=== PATIENT | male | born 2000 | race Two or more races ===

== ENCOUNTER → 2024-05-08 | Outpatient (CLI) | payer BC, SELFPAY ==
[2024-05-08 07:56] LABS: Quantiferon-TB* See Sep Rpt
== END | disposition home or self-care (01) ==
LOC: COPL 07:38
PROVIDERS: PCP Family Medicine; Referring Provider Nurse Practitioner Family; Visit Provider Nurse Practitioner Family
DX: Z20.1 Contact with and (suspected) exposure to tuberculosis (principal)
CPT/HCPCS: 86480

== ENCOUNTER 2024-05-28 16:30 | Emergency (ER) | payer BC, SELFPAY ==
[2024-05-28 16:50] VITALS: BP 129/86; PULSE 88; RESP 18; TEMP 37.5; O2SAT 99; BMI 22.5
--- NOTE | 2024-05-28 16:51 | PD.EDRME ---
Rapid Medical Screening Exam RME Arrival date/time: 05/28/24 16:30 22-year-old male presents emergency department complaints of nausea vomiting and diarrhea Chief Complaint: Abdominal Pain Time Seen by Provider: 05/28/24 16:48
[2024-05-28 17:14] LABS: Basophils % (Auto) 0 % (0-2.5); Eosinophils # (Auto) 0.1 Thou/mm3 (0.0-0.5); Eosinophils % (Auto) 1 % (0-10); Hematocrit 42.4 % (41.0-53.0); Hemoglobin 14.9 g/dL (13.5-16.0); Immature Granulocytes % (Auto) 0 % (0-0); Immature Granulocytes Auto 0.03 Thou/mm3 (0.00-0.00); Lymphocytes # (Auto) 0.3 Thou/mm3 (1.0-4.8); Lymphocytes % (Auto) 3 % (10-50); Mean Corpuscular HGB Conc 35.1 g/dl (31.0-37.0); Mean Corpuscular Hemoglobin 29.6 pg (25.0-35.0); Mean Corpuscular Volume 84 fL (80-100); Monocytes # (Auto) 0.4 Thou/mm3 (0.0-0.8); Monocytes % (Auto) 4 % (0-12); Neutrophils # (Auto) 9.8 Thou/mm3 (1.8-7.7); Neutrophils % (Auto) 92 % (37-80); Nucleated Red Blood Cell % 0 /100 WBC (0); Platelet Count 148 Thou/mm3 (140-440); RDW Standard Deviation 39.7 fL (35.1-43.9); Red Blood Count 5.04 Miln/mm3 (4.50-5.90); White Blood Count 10.6 Thou/mm3 (3.8-10.6)
[2024-05-28] MEDS: ONDANSETRON ODT 4 MG TABRAP PO (17:19)
[2024-05-28 17:36] LABS: Alanine Aminotransferase 25 U/L (10-49); Albumin, Serum 4.9 gm/dL (3.5-5.0); Albumin/Globulin Ratio 1.5 (1.2-2.2); Alkaline Phosphatase 60 U/L (46-116); Anion Gap 8 (7-16); Aspartate Amino Transferase 32 U/L (0-34); BUN/Creatinine Ratio 10 Ratio (12-20); Bilirubin,Total 2.3 mg/dL (0.3-1.2); Blood Urea Nitrogen 10 mg/dL (9-23); Calcium 9.9 mg/dL (8.3-10.6); Calcium (Corrected) 9.9 mg/dL (8.5-10.1); Carbon Dioxide 27.9 mMol/L (20.0-31.0); Chloride 101 mMol/L (98-107); Estimated Creatinine Clearance 136.4 mL/min (>60); Globulin 3.2 gm/dL (2.3-3.5); Glucose 110 mg/dL (74-106); Lipase 31 U/L (12-53); Osmolality,Calculated 273 (275-295); Potassium 4.1 mMol/L (3.4-5.1); Sodium 137 mMol/L (136-145); Total Protein 8.1 gm/dL (5.7-8.2); eGFR > 60 See Note
[2024-05-28 18:05] LABS: Collection Type, Urine Clean Catch
[2024-05-28 18:17] LABS: Bacteria,Urine Rare; Bilirubin,Urine Negative (Negative); Blood,Urine Negative (Negative); Clarity,Urine Clear (Clear/Hazy); Color,Urine Yellow (Lt Yel-Yel); Culture Indicated,Urine Not Indicated; Glucose, Urine Negative (Negative); Ketones,Urine Trace (Negative); Leukocyte Esterase,Urine Negative (Negative); Nitrite,Urine Negative (Negative); PH,Urine 6.5 (5.0-7.0); Protein,Urine Trace (Neg - Trace); RBC,Urine 3 /hpf (0-3); Specific Gravity,Urine 1.024 (1.001-1.035); Squamous Epithelial Cell,Urine < 1 /hpf (0-5); Urobilinogen,Urine Negative mg/dL (0.0-1.0); WBC,Urine 1 /hpf (0-5)
--- NOTE | 2024-05-28 20:04 | PD.EDADULT ---
ED General RME/HPI General Chief complaint: Abdominal Pain Stated complaint: ABD PAIN, DARK GREEN STOOL/EMESIS X 0900 Time Seen by Provider: 05/28/24 16:48 Arrival date/time: 05/28/24 16:30 CC: Nausea vomiting diarrhea HPI onset this morning, mildly nauseated currently last episode of nausea and vomiting was approximately 2 hours ago. States he is feeling better after medicines given in the waiting room. Denies any other family members around or being ill with similar symptoms no prior history of similar events denies any fever chest pain shortness of breath or difficulty breathing. RME / HPI RME / HPI narrative: 05/28/24 16:30 22-year-old male presents emergency department complaints of nausea vomiting and diarrhea Related Data Previous Rx's ?Medication ?Instructions ?Recorded famotidine 20 mg tablet 20 mg PO QDAY #30 tabs 05/28/24 ondansetron 4 mg disintegrating 4 mg PO Q8H #14 tabs 05/28/24 tablet Allergies Allergy/AdvReac Type Severity Reaction Status Date / Time NKA* Allergy Uncoded 05/28/24 16:32 Review of Systems Review of Systems Narrative Review of Systems: GEN: No fever, no chills, no weight loss EYES: No discharge, no visual changes, no pain HEENT: No ear pain, no congestion, no sore throat PULM: No shortness of breath, no cough, no congestion CV: No chest pain, no dyspnea on exertion, no palpitations GI: + nausea, + vomiting, + diarrhea, no pain, no constipation : No frequency, no urgency, no dysuria MUSC/SKEL: No joint pain, no back pain SKIN: No rash PSYCH: No hallucinations, no depression HEME/LYMPH: No easy bleeding or bruising tendencies NEURO: No weakness, no headache ED Exam Narrative Physical exam: [General: Not in any acute distress Head normocephalic HEENT: Within acceptable limits Neck is supple nontender Chest equal chest rise nontender to palpation Respiratory: Clear to auscultation no wheezes crackles or rubs CV: Rate rhythm is regular no murmurs rubs or clicks Abdomen is soft mild epigastric right upper and left upper quadrant tenderness with palpation no reflexive guarding no rebound tenderness. Back: No CVA tenderness no spinous process tenderness from cervical spine thoracic and lumbar spine Skin: Intact no petechiae rash induration ulceration or crepitus Extremities: Moving all extremity against resistance cap refill less than 2 seconds neurosensory intact Neuro: Awake alert oriented x3 Glascow coma 15 no focal deficits] Course Quality Measures none Orders Category Date Time Status Bedside Influenza A&B Antigen Test NOW Care 05/28/24 16:50 Completed CBC Stat Lab 05/28/24 17:04 Completed Comprehensive Metabolic Panel Stat Lab 05/28/24 17:04 Completed Lipase Stat Lab 05/28/24 17:04 Completed UA, C/S IF [Urinalysis, C/S if Indicated] Stat Lab 05/28/24 17:45 Completed Ondansetron Odt [Zofran Odt] Med 05/28/24 16:50 Discontinued 4 mg PO X1 ONE Vital Signs Vital signs: Vital Signs Temperature 99.5 F 05/28/24 16:50 Pulse Rate 88 05/28/24 16:50 Respiratory Rate 18 05/28/24 16:50 Blood Pressure 129/86 H 05/28/24 16:50 Pulse Oximetry (%) 99 05/28/24 16:50 Oxygen Delivery Method Room Air 05/28/24 16:50 [facility] Patient data External records reviewed:: [facility] previous records Clinical information provided by:: patient Social determinants that could affect healthcare access:: none Patient has the following chronic illnesses:: None How is presenting disease/condition affected by chronic disease/condition?: uneffected by Evaluation data The following diagnostics were reviewed and interpreted by me:: lab results Lab and/or radiology exams considered but not ordered:: CBC shows no acute leukocytosis anemia thrombocytopenia CMP shows no acute electrolyte imbalances renal impairment transaminitis but there is an elevated T. bili of 2.3 Urine is negative Interpretation Summary: I suspect this is gastroenteritis, however with elevated T. bili advised the patient that he is to continue with a bland diet and medications prescribed and if there is worsening of symptoms return for reevaluation. Patient is in agreement with this plan. Medications Medications considered but not ordered:: None Medication administrations:: Medication Administration History Discontinued Medications Ondansetron HCl (Ondansetron Odt 4 Mg Tabrap) 4 mg PO X1 ONE; Protocol Stop: 05/28/24 16:51 Last Admin: 05/28/24 17:19 Dose: 4 mg Documented By: KF None Consultations Consultation(s) initiated? (list below): No Diagnosis Differential Diagnosis ED Complaint MDM: Gastroenteritis cholelithiasis cholecystitis Most likely diagnosis given after review of the tests above:: Gastritis Admission Indicated Admission indicated?: not indicated Explain why admission is indicated or not indicated:: Stable for outpatient follow-up Admission Request Was there a request for admission?: No Disposition Plan Disposition Plan: Discharge Discharge Attestation Discharge Attestation: The patient and all family members were given an opportunity to ask questions and understood the discharge instructions. Discharge instructions specifically effects, indications for sooner follow up or return to the emergency department, and the expected course of current diagnosis. Patient condition: Stable Medical Decision Making Differential Diagnosis Differential Diagnosis: Gastroenteritis cholelithiasis cholecystitis Lab Data 05/28/24 17:04 05/28/24 17:04 Labs: Lab Results 05/28/24 05/28/24 Range/Units 17:04 17:45 WBC 10.6 (3.8-10.6) Thou/mm3 RBC 5.04 (4.50-5.90) Miln/mm3 Hgb 14.9 (13.5-16.0) g/dL Hct 42.4 (41.0-53.0) % MCV 84 (80-100) fL MCH 29.6 (25.0-35.0) pg MCHC 35.1 (31.0-37.0) g/dl RDW Std Deviation 39.7 (35.1-43.9) fL Plt Count 148 (140-440) Thou/mm3 Neut % (Auto) 92 H (37-80) % Lymph % (Auto) 3 L (10-50) % [place] % (Auto) 4 (0-12) % Eos % (Auto) 1 (0-10) % Baso % (Auto) 0 (0-2.5) % Neut # (Auto) 9.8 H (1.8-7.7) Thou/mm3 Lymph # (Auto) 0.3 L (1.0-4.8) Thou/mm3 [place] # (Auto) 0.4 (0.0-0.8) Thou/mm3 Eos # (Auto) 0.1 (0.0-0.5) Thou/mm3 Baso # (Auto) 0.0 (0.0-0.2) Thou/mm3 Immature Gran # (Auto) 0.03 H (0.00-0.00) Thou/mm3 Absolute Nucleated RBC 0.00 (0.00-0.00) Thou/mm3 Immature Gran % 0 (0-0) % Nucleated RBC % 0 (0) /100 WBC Sodium 137 (136-145) mMol/L Potassium 4.1 (3.4-5.1) mMol/L Chloride 101 (98-107) mMol/L Carbon Dioxide 27.9 (20.0-31.0) mMol/L Anion Gap 8 (7-16) BUN 10 (9-23) mg/dL Creatinine 1.0 (0.6-1.3) mg/dL Estim Creat Clear Calc 136.4 (>60) mL/min eGFR > 60 (60 - ) See Note BUN/Creatinine Ratio 10 L (12-20) Ratio Glucose 110 H (74-106) mg/dL Calculated Osmolality 273 L (275-295) Calcium 9.9 (8.3-10.6) mg/dL Corrected Calcium 9.9 (8.5-10.1) mg/dL Total Bilirubin 2.3 H (0.3-1.2) mg/dL AST 32 (0-34) U/L ALT 25 (10-49) U/L Alkaline Phosphatase 60 (46-116) U/L Total Protein 8.1 (5.7-8.2) gm/dL Albumin 4.9 (3.5-5.0) gm/dL Globulin 3.2 (2.3-3.5) gm/dL Albumin/Globulin Ratio 1.5 (1.2-2.2) Lipase 31 (12-53) U/L Ur Collection Type Clean Catch Urine Color Yellow (Lt Yel-Yel) Urine Clarity Clear (Clear/Hazy) Urine pH 6.5 (5.0-7.0) Ur Specific [place] 1.024 (1.001-1.035) Urine Protein Trace (Neg - Trace) Urine Glucose (UA) Negative (Negative) Urine Ketones Trace (Negative) Urine Blood Negative (Negative) Urine Nitrite Negative (Negative) Urine Bilirubin Negative (Negative) Urine Urobilinogen (Auto) Negative (0.0-1.0) mg/dL Ur Leukocyte Esterase Negative (Negative) Urine RBC 3 (0-3) /hpf Urine WBC 1 (0-5) /hpf Ur Squamous Epith Cells < 1 (0-5) /hpf Urine Bacteria Rare (None) Ur Culture Indicated? Not Indicated Discharge Plan Plan Patient Disposition: HOME (Self Care) Patient condition on transfer: Stable Prescriptions/Referrals Prescriptions/Med Rec: New ondansetron 4 mg tablet,disintegrating 4 mg PO Q8H Qty: 14 0RF famotidine 20 mg tablet 20 mg PO QDAY Qty: 30 0RF Referrals: Yadiel Aguilar MD [Primary Care Provider] - In 1 week Problem List Clinical Impression: Nausea & vomiting, Epigastric pain Patient/Caregiver Discharge Instructions Education Materials: ED Epigastric Pain (Uncertain Cause), ED Diet, [place] (Adult) Additional Instructions: Take the medications as prescribed avoid greasy spicy and fatty foods stick to a bland diet for the next 7 to 10 days if there is worsening of symptoms in spite of the medications return the emergency room immediately for further evaluation. Print Language: Hebrew Stand Alone Forms: Yandy Award Info., Patient Portal Info Letter, Work/School Release YANNA/TRUPTI Supervising Physician YANNA/TRUPTI Supervising Physician: Danie Cardona ENP
== END 2024-05-28 20:15 | disposition home or self-care (01) ==
PROVIDERS: Nurse Practitioner Primary Care; Emergency Provider Emergency Medicine; PCP Family Medicine
DX: R11.2 Nausea with vomiting, unspecified (principal); R10.13 Epigastric pain
CPT/HCPCS: 36415; 80053; 81001; 83690; 85025; 87400; 99283; Q0162

== ENCOUNTER → 2024-06-03 | Outpatient (CLI) | payer BC, SELFPAY ==
[2024-06-03 15:49] LABS: Sed Rate (ESR) 1 mm/hr (0-15)
[2024-06-03 15:59] LABS: Bilirubin,Direct 0.3 mg/dL (0.0-0.3); Bilirubin,Total 0.9 mg/dL (0.3-1.2); LDH (Lactate Dehydrogenase) 169 U/L (120-246)
[2024-06-10 06:52] LABS: Gamma Glutamyl Transpeptidase* 12 U/L (3-70); hs-CRP* 0.4 mg/L
== END | disposition home or self-care (01) ==
LOC: COPL 14:39
PROVIDERS: PCP Nurse Practitioner Family; Referring Provider Nurse Practitioner Family; Visit Provider Nurse Practitioner Family
DX: R79.9 Abnormal finding of blood chemistry, unspecified (principal); R10.11 Right upper quadrant pain; E80.7 Disorder of bilirubin metabolism, unspecified
CPT/HCPCS: 36415; 82247; 82248; 82977; 83615; 85652; 86141

== ENCOUNTER 2024-11-28 23:18 | Emergency (ER) | payer BC, SELFPAY ==
[2024-11-28 23:19] VITALS: BMI 21.9
[2024-11-28 23:24] VITALS: BP 132/73; PULSE 44; RESP 18; TEMP 36.6; O2SAT 98
--- NOTE | 2024-11-28 23:35 | EKG_ITS ---
[facility] Test Date: 2024-11-28 Pat Name: SACHI VIRGEN Department: Room: - Gender: Male Manager Of Distribution: : 2000 Requested By: Amor Aranda Order Number: [id number] Reading MD: Amor Aranda Measurements Intervals [place] Rate: 47 P: 23 OR: 138 QRS: 82 QRSD: 118 T: 49 QT: 423 QTc: 374 Interpretive Statements SINUS BRADYCARDIA MODERATE INTRAVENTRICULAR CONDUCTION DELAY [110+ ms QRS DURATION] Compared to ECG 02/17/2024 03:18:12 Intraventricular conduction delay now present Sinus rhythm no longer present Sinus arrhythmia no longer present Incomplete right bundle-branch block no longer present /store/S0/[id number].pdf
--- NOTE | 2024-11-29 00:05 | XR_ITS ---
Examination: Ribs, left, with PA chest, 5 views Technique: Chest PA, RIBS AP, RPO, LPO, AP coned lower ribs 5 views Exam date and time: November 29, 2024 at 0036 hours INDICATIONS: Basketball injury to the left chest 4 days ago, rib pain Findings: Normal heart size. No pneumothorax No acute rib fracture is depicted. IMPRESSION: No pneumothorax No acute rib fractures
[2024-11-29 00:23] LABS: Basophils % (Auto) 1 % (0-2.5); Eosinophils # (Auto) 0.3 Thou/mm3 (0.0-0.5); Eosinophils % (Auto) 5 % (0-10); Hematocrit 37.8 % (41.0-53.0); Hemoglobin 13.7 g/dL (13.5-16.0); Immature Granulocytes % (Auto) 0 % (0-0); Immature Granulocytes Auto 0.01 Thou/mm3 (0.00-0.00); Lymphocytes # (Auto) 2.3 Thou/mm3 (1.0-4.8); Lymphocytes % (Auto) 38 % (10-50); Mean Corpuscular HGB Conc 36.2 g/dl (31.0-37.0); Mean Corpuscular Hemoglobin 30.1 pg (25.0-35.0); Mean Corpuscular Volume 83 fL (80-100); Monocytes # (Auto) 0.5 Thou/mm3 (0.0-0.8); Monocytes % (Auto) 9 % (0-12); Neutrophils # (Auto) 2.9 Thou/mm3 (1.8-7.7); Neutrophils % (Auto) 48 % (37-80); Nucleated Red Blood Cell % 0 /100 WBC (0); Platelet Count 151 Thou/mm3 (140-440); RDW Standard Deviation 39.8 fL (35.1-43.9); Red Blood Count 4.55 Miln/mm3 (4.50-5.90)
--- NOTE | 2024-11-29 00:30 | PD.EDCHEST ---
ED Chest Pain RME/HPI General Chief Complaint: Chest Pain Stated Complaint: LEFT SIDED RIB PAIN AFTER PLAYING BASKETBALL Time Seen by Provider: 11/29/24 00:05 Arrival date/time: 11/28/24 23:18 24M with no significant PMH presents to ED with L rib pain for 4 days after playing basketball. Patient does not recall an obvious injury, but another player may have elbowed him there. There is also some SOB. Patient denies URI symptoms. Limitations: no limitations Related Data Previous Rx's ?Medication ?Instructions ?Recorded famotidine 20 mg tablet 20 mg PO QDAY #30 tabs 05/28/24 ondansetron 4 mg disintegrating 4 mg PO Q8H #14 tabs 05/28/24 tablet Allergies Allergy/AdvReac Type Severity Reaction Status Date / Time NKA* Allergy Uncoded 11/28/24 23:21 Review of Systems Review of Systems Systems Reviewed: All systems reviewed, normal except as documented Constitutional Constitutional: Reports system reviewed and no additional complaints, except as documented, Denies fever(s) and Denies headache(s) ENT Ears, Nose, Mouth, and Throat: Denies disequilibrium and Denies headache(s) Cardiovascular Cardiovascular: Reports system reviewed and no additional complaints, except as documented, Reports as per HPI, Reports chest pain and Reports dyspnea Respiratory Respiratory: Reports system reviewed and no additional complaints, except as documented, Denies cough and Reports dyspnea Gastrointestinal Gastrointestinal: Reports system reviewed and no additional complaints, except as documented, Denies abdominal pain, Denies nausea and Denies vomiting Neurologic Neurologic: Reports system reviewed and no additional complaints, except as documented, Denies confusion, Denies disequilibrium and Denies headache(s) Psychiatric Psychiatric: Denies confusion Past Medical History Social History SMOKING STATUS: Never smoker ED Exam General Limitations: Present no limitations General appearance: Present alert and in no apparent distress Head Head exam: Present atraumatic Eye Eye exam: Present normal appearance, PERRL and EOMI ENT ENT exam: Present normal exam, normal oropharynx and mucous membranes moist Neck Neck exam: Present normal inspection, full ROM and trachea midline Chest Chest inspection: Present symmetric chest wall rise and tenderness (L rib) Respiratory Respiratory exam: Present normal lung sounds bilaterally Cardiovascular Cardiovascular exam: Present regular rate, normal rhythm and normal heart sounds Abdominal Exam Abdominal exam: Present soft and normal bowel sounds Extremities Exam Extremities exam: Present normal inspection and full ROM Back Exam Back exam: Present normal inspection and full ROM Neurological Exam Neurological exam: Present alert, oriented X3 and CN II-XII intact Psychiatric Psychiatric exam: Present normal affect and normal mood Skin Skin exam: Present warm, dry, intact and normal color Course Quality Measures none Orders Category Date Time Status EKG (ED ONLY) *Do not use* NOW Care 11/28/24 23:35 Completed EKG (ED Only) Stat Exams 11/28/24 23:35 Draft XR ribs LT min 3V w CXR1V Stat Exams 11/29/24 00:05 Taken CBC Stat Lab 11/29/24 00:16 Completed CMP [Comprehensive Metabolic Panel] Stat Lab 11/29/24 00:16 Completed D-Dimer Stat Lab 11/29/24 00:16 Completed Troponin I Stat Lab 11/29/24 00:16 Completed Vital Signs Vital signs: Vital Signs Temperature 98 F 11/28/24 23:24 Pulse Rate 44 L 11/28/24 23:24 Respiratory Rate 18 11/28/24 23:24 Blood Pressure 132/73 H 11/28/24 23:24 Pulse Oximetry (%) 98 11/28/24 23:24 Oxygen Delivery Method Room Air 11/28/24 23:24 O2 at 98% on RA and WNLs Chest Pain MDM Narrative MDM Narrative:: 24M with no significant PMH presents to ED with L rib pain for 4 days after playing basketball. Patient does not recall an obvious injury, but another player may have elbowed him there. There is also some SOB. Patient denies URI symptoms. Physical exam reveals mild L rib tenderness. Pain is with ROM. Clear lungs. Patient is afebrile, calm, and alert. EKG is sinus mayela of 47. XR unremarkable. No leukocytosis. CMP unremarkable. Trop and D-dimer normal. Likely MSK-related sports injury. Counseled to see PCP to work-up bradycardia. Patient data External records reviewed:: [facility] previous records Clinical information provided by:: patient Social determinants that could affect healthcare access:: none Patient has the following chronic illnesses:: none How is presenting disease/condition affected by chronic disease/condition?: no chronic disease Evaluation data The following diagnostics were reviewed and interpreted by me:: lab results, radiology exam(s) and EKG tracing(s) Lab and/or radiology exams considered but not ordered:: ordered Interpretation Summary: above Medications / Prescriptions Medications or Prescriptions considered but not ordered:: not ordered Medication administrations:: n/a Consultations Consultation(s) initiated? (list below): No Diagnosis Chest Pain Differential Diagnosis: fracture of rib, pneumothorax, stable angina, unstable angina pectoris, atypical chest pain, st elevation myocardial infarction, costochondritis, chest pain, biliary colic and other (PE, rib contusion, bradycardia) Most likely diagnosis given after review of the tests above:: bradycardia and rib contusion Admission Indicated Admission indicated?: not indicated Admission Request Was there a request for admission?: No Disposition Plan Disposition Plan: Discharge Discharge Attestation Discharge Attestation: The patient and all family members were given an opportunity to ask questions and understood the discharge instructions. Discharge instructions specifically effects, indications for sooner follow up or return to the emergency department, and the expected course of current diagnosis. Patient condition: Stable Discharge Plan Plan Patient Disposition: HOME (Self Care) Discharge Disposition comment: Stable Prescriptions/Referrals Prescriptions/Med Rec: No Action ondansetron 4 mg tablet,disintegrating 4 mg PO Q8H Qty: 14 0RF famotidine 20 mg tablet 20 mg PO QDAY Qty: 30 0RF Referrals: Melchor Bar MD [Primary Care Provider] - In 1 week Problem List Clinical Impression: Contusion of rib, Bradycardia Patient/Caregiver Discharge Instructions Education Materials: ED Bradycardia, ED Rib Contusion or Minor Fracture Additional Instructions: Please follow-up with PCP within 24-48 hours and return immediately if symptoms worsen. See PCP about slow heart rate. Print Language: Spanish Stand Alone Forms: Patient Portal Info Letter YANNA/TRUPTI Supervising Physician NATHALY Supervising Physician: Dr. Austin
[2024-11-29 00:37] LABS: D-Dimer < 250 ng/mL (<600)
[2024-11-29 00:43] LABS: Alanine Aminotransferase 14 U/L (10-49); Albumin, Serum 4.3 gm/dL (3.5-5.0); Albumin/Globulin Ratio 1.7 (1.2-2.2); Alkaline Phosphatase 64 U/L (46-116); Anion Gap 9 (7-16); Aspartate Amino Transferase 18 U/L (0-34); BUN/Creatinine Ratio 11 Ratio (12-20); Bilirubin,Total 0.6 mg/dL (0.3-1.2); Blood Urea Nitrogen 12 mg/dL (9-23); Calcium 8.7 mg/dL (8.3-10.6); Calcium (Corrected) 8.7 mg/dL (8.5-10.1); Carbon Dioxide 29.9 mMol/L (20.0-31.0); Chloride 104 mMol/L (98-107); Creatinine (Component) 1.1 mg/dL (0.6-1.3); Estimated Creatinine Clearance 119.6 mL/min (>60); Globulin 2.5 gm/dL (2.3-3.5); Glucose 89 mg/dL (74-106); Osmolality,Calculated 283 (275-295); Potassium 3.9 mMol/L (3.4-5.1); Sodium 143 mMol/L (136-145); Total Protein 6.8 gm/dL (5.7-8.2); Troponin I < 0.002 ng/mL (0.0-0.045); eGFR > 60 See Note
--- NOTE | 2024-11-29 02:09 | PRELIM_ITS ---
Radiographs of the left ribs (3 views). November 29, 2024 0036 hours Clinical history: CP/SOB Comparison: No prior study is available for comparison. Findings: No evidence of pneumothorax. No displaced rib fracture is seen. Impression: No displaced rib fractures or pneumothorax. Report Electronically Signed By: Obed Mooney 11/29/2024 2:08:41 AM [EST]
[2024-11-29 02:30] VITALS: BP 120/68; PULSE 44; RESP 18; TEMP 36.7; O2SAT 99
== END 2024-11-29 02:36 | disposition home or self-care (01) ==
PROVIDERS: Physician Assistant; Emergency Provider Emergency Medicine; PCP Student in an Organized Health Care Education/Training Program
DX: S20.219A Contusion of unspecified front wall of thorax, initial encounter (principal); Y93.67 Activity, basketball; R00.1 Bradycardia, unspecified
CPT/HCPCS: 36415; 71101; 80053; 84484; 85025; 85379; 93005; 99283

== ENCOUNTER → 2024-12-05 | Outpatient (CLI) | payer BC, SELFPAY ==
--- NOTE | 2024-12-05 16:30 | XR_ITS ---
Examination: CT abdomen and pelvis without contrast. Coronal 3-D reconstructions. Sagittal 2-D reconstructions. Date and time of exam:December 05, 2024 1644 hours INDICATIONS: Onset right upper upper abdominal pain beginning June 2024 CTDI: vol (mGy): 6.48 DLP: (mGycm): 361 Technique: Axial images of the abdomen have been obtained, 3 mm slice thickness Intravenous contrast material has not been administered. Low dose protocols were performed. One or more of the following dose reduction techniques were used; automated exposure control, adjustment of the mA and/or KV according to patient size, use of iterative reconstruction technique. Findings: No focal liver or splenic lesions No gallstones No pancreatic mass Minimal nodular thickening left adrenal gland No renal or ureteral calculi, no hydronephrosis Aorta normal size No bowel obstruction Normal appendix No diverticulitis No bladder mass or bladder calculi Moderate stool in the rectum IMPRESSION: No renal or ureteral calculi, no hydronephrosis Normal appendix No bowel obstruction No bladder mass or bladder calculi
== END | disposition home or self-care (01) ==
LOC: CCTX 16:28
PROVIDERS: PCP Student in an Organized Health Care Education/Training Program; Referring Provider Student in an Organized Health Care Education/Training Program; Visit Provider Student in an Organized Health Care Education/Training Program
DX: N20.0 Calculus of kidney (principal)
CPT/HCPCS: 74176

== ENCOUNTER → 2024-12-23 | Outpatient (CLI) | payer BC, SELFPAY ==
[2024-12-23 14:18] LABS: Free T4 (Free Thyroxine) 1.15 ng/dL (0.89-1.76); Thyroid Stimulating Hormone 1.01 uIU/mL (0.55-4.78)
== END | disposition home or self-care (01) ==
LOC: COPL 13:14
PROVIDERS: PCP Student in an Organized Health Care Education/Training Program; Referring Provider Specialist; Visit Provider Specialist
DX: E03.9 Hypothyroidism, unspecified (principal)
CPT/HCPCS: 36415; 84439; 84443

== ENCOUNTER → 2025-01-21 | Outpatient (CLI) | payer BC, SELFPAY ==
[2025-01-21 12:50] LABS: Misc Send Out* See Sep Rpt
[2025-01-21 13:36] LABS: Basophils # (Auto) 0.0 Thou/mm3 (0.0-0.2); Basophils % (Auto) 1 % (0-2.5); Eosinophils # (Auto) 0.2 Thou/mm3 (0.0-0.5); Eosinophils % (Auto) 5 % (0-10); Hematocrit 42.8 % (41.0-53.0); Hemoglobin 15.0 g/dL (13.5-16.0); Immature Granulocytes Auto 0.00 Thou/mm3 (0.00-0.00); Lymphocytes # (Auto) 1.2 Thou/mm3 (1.0-4.8); Lymphocytes % (Auto) 32 % (10-50); Mean Corpuscular HGB Conc 35.0 g/dl (31.0-37.0); Mean Corpuscular Hemoglobin 29.8 pg (25.0-35.0); Mean Corpuscular Volume 85 fL (80-100); Monocytes # (Auto) 0.4 Thou/mm3 (0.0-0.8); Monocytes % (Auto) 9 % (0-12); Neutrophils # (Auto) 2.0 Thou/mm3 (1.8-7.7); Neutrophils % (Auto) 53 % (37-80); Nucleated Red Blood Cell # 0.00 Thou/mm3 (0.00-0.00); Nucleated Red Blood Cell % 0 /100 WBC (0); Platelet Count 160 Thou/mm3 (140-440); RDW Standard Deviation 39.5 fL (35.1-43.9); Red Blood Count 5.04 Miln/mm3 (4.50-5.90); White Blood Count 3.7 Thou/mm3 (3.8-10.6)
[2025-01-21 13:51] LABS: Folate 13.88 ng/mL (>5.38); Vitamin B12 734 pg/mL (211-911)
[2025-01-21 13:52] LABS: Alanine Aminotransferase 14 U/L (10-49); Albumin, Serum 4.3 gm/dL (3.5-5.0); Albumin/Globulin Ratio 1.5 (1.2-2.2); Alkaline Phosphatase 100 U/L (46-116); Anion Gap 7 (7-16); Aspartate Amino Transferase 23 U/L (0-34); BUN/Creatinine Ratio 11 Ratio (12-20); Bilirubin,Total 1.0 mg/dL (0.3-1.2); Blood Urea Nitrogen 11 mg/dL (9-23); Calcium 9.1 mg/dL (8.3-10.6); Calcium (Corrected) 9.1 mg/dL (8.5-10.1); Carbon Dioxide 28.1 mMol/L (20.0-31.0); Chloride 106 mMol/L (98-107); Creatinine (Component) 1.0 mg/dL (0.6-1.3); Free T4 (Free Thyroxine) 1.18 ng/dL (0.89-1.76); Globulin 2.9 gm/dL (2.3-3.5); Glucose 91 mg/dL (74-106); Osmolality,Calculated 280 (275-295); Potassium 4.4 mMol/L (3.4-5.1); Sodium 141 mMol/L (136-145); Thyroid Stimulating Hormone 1.35 uIU/mL (0.55-4.78); Total Protein 7.2 gm/dL (5.7-8.2); eGFR > 60 See Note
== END | disposition home or self-care (01) ==
LOC: COPL 12:29
PROVIDERS: PCP Student in an Organized Health Care Education/Training Program; Referring Provider Student in an Organized Health Care Education/Training Program; Visit Provider Student in an Organized Health Care Education/Training Program
DX: R00.1 Bradycardia, unspecified (principal); R42 Dizziness and giddiness; R53.83 Other fatigue
CPT/HCPCS: 36415; 80053; 82607; 82746; 84439; 84443; 85025

== ENCOUNTER → 2025-03-18 | Outpatient (CLI) | payer BC, SELFPAY ==
[2025-03-18 08:59] LABS: Quantiferon-TB* See Sep Rpt
[2025-03-18 10:27] LABS: C-Reactive Protein < 0.5 mg/dL (0.0-0.9); Troponin I < 0.020 ng/mL (0.0-0.045)
[2025-03-18 10:47] LABS: Sed Rate (ESR) 1 mm/hr (0-15)
[2025-03-24 09:16] LABS: ANA Screen, IFA POSITIVE (NEGATIVE); ANA Titer 1:320 titer
== END | disposition home or self-care (01) ==
LOC: COPL 08:36
PROVIDERS: PCP Student in an Organized Health Care Education/Training Program; Referring Provider Internal Medicine Cardiovascular Disease; Visit Provider Student in an Organized Health Care Education/Training Program
DX: Z11.1 Encounter for screening for respiratory tuberculosis (principal); R00.1 Bradycardia, unspecified
CPT/HCPCS: 36415; 84484; 85652; 86038; 86039; 86140; 86480

== ENCOUNTER 2025-04-13 09:32 | Emergency (ER) | payer BC, SELFPAY ==
[2025-04-13] VITALS (8 sets, daily range): BP systolic 107–143; BP diastolic 59–85; PULSE 37–48; RESP 12–17; TEMP 36.6–37.1; O2SAT 97–100; BMI 23.2
--- NOTE | 2025-04-13 09:38 | EKG_ITS ---
[facility] Test Date: 2025-04-13 Pat Name: SACHI VIRGEN Department: Room: - Gender: Male Senior Financial Accountant: : 2000 Requested By: ED Temporary Provider Order Number: [id number] Reading MD: ED Temporary Provider Measurements Intervals [place] Rate: 49 P: 42 TN: 141 QRS: 87 QRSD: 115 T: 58 QT: 439 QTc: 397 Interpretive Statements SINUS BRADYCARDIA INCOMPLETE RIGHT BUNDLE BRANCH BLOCK [90+ ms QRS DURATION, TERMINAL R IN V1/V2, 40+ ms S IN I/aVL/V4/V5/V6] Compared to ECG 03/29/2025 20:41:29 No significant changes /store/S0/[id number].pdf
--- NOTE | 2025-04-13 10:15 | PD.EDRME ---
Rapid Medical Screening Exam RME Arrival date/time: 04/13/25 09:32 Chief Complaint: Chest Pain Time Seen by Provider: 04/13/25 09:39 Vital signs: Vital Signs Temperature 98.7 F 04/13/25 09:47 Pulse Rate 46 L 04/13/25 09:47 Respiratory Rate 16 04/13/25 09:47 Blood Pressure 143/85 H 04/13/25 09:47 Pulse Oximetry (%) 100 04/13/25 09:47 Oxygen Delivery Method Room Air 04/13/25 09:47 Vital signs reviewed by provider: Yes RME Narrative: 24-year-old male with past medical history of meningioma who was placed on Keppra 2 weeks ago by his neurologist for EEG activity due to his headaches however no recognizable seizure history aside from that, PETER positive autoimmune issue, sinus bradycardia who is currently being monitored by Dr. Arevalo and was noted to have a dilated heart on echocardiogram 2 weeks ago presents to the ER complaining of worsening low heart rate, chest pain, dizziness which began last night when he was working at [employer] however symptoms have been present since October of this year. Denies vomiting, shortness of breath
--- NOTE | 2025-04-13 10:32 | XR_ITS ---
EXAMINATION: AP chest single view TECHNIQUE: AP portable upright chest single view Date and time: April 13, 2025, 10:31 a.m., comparison 03/29/2025 INDICATIONS: Onset chest pain dizziness today. FINDINGS: Normal heart size The lungs are clear. The osseous structures are intact IMPRESSION: No active disease
--- NOTE | 2025-04-13 10:37 | EDNOTE_ITS ---
ED Chest Pain RME/HPI General Chief Complaint: Chest Pain Stated Complaint: CHEST PAIN, DIZZY, HEART DOESN'T FEEL RIGHT Time Seen by Provider: 04/13/25 09:39 Arrival date/time: 04/13/25 09:32 RME / HPI RME / HPI narrative: 24-year-old male with past medical history of meningioma who was placed on Keppra 2 weeks ago by his neurologist for EEG activity due to his headaches however no recognizable seizure history aside from that, PETER positive autoimmune issue, sinus bradycardia who is currently being monitored by cardiology and was noted to have a dilated heart on echocardiogram 2 weeks ago presents to the ER complaining of worsening low heart rate, chest pain, dizziness which began last night when he was working at [employer] however symptoms have been present since October of this year. Denies vomiting, shortness of breath DR. BUTCHER MAIN ED EVALUATION: 24-year-old male with a past medical history notable for meningioma with associated seizures and bradycardia followed by product development Dr. Arevalo and zane rologist Dr. Serna, presenting to the Emergency Department accompanied by his mother for evaluation of left lateral chest pain. He describes the pain as a pressure sensation associated with dizziness, shortness of breath, and nausea but denies vomiting. No recent trauma, cough, fever, or palpitations reported. Related Data Previous Rx's ?Medication ?Instructions ?Recorded famotidine 20 mg tablet 20 mg PO QDAY #30 tabs 05/28 ondansetron 4 mg disintegrating 4 mg PO Q8H #14 tabs 1 07/28/23 tablet camphor-menthol 230 mg-70 mg 1 patch topical QDAY PRN pain #4 ea 04/13/25 topical patch (Farrell Walpole) Allergies Allergy/AdvReac Type Severity Reaction Status Date / Time No Known Allergies Allergy Verified 04/13/25 09:37 Review of Systems Review of Systems Systems Reviewed: All systems reviewed, normal except as documented Past Medical History Past Medical History NEUROLOGIC: Positive Seizures (SEZIURES CAUSE BY BRAIN TUMOR PER PT) CARDIAC: Positive Cardiac Disorders (CHRONIC BRADYCARDIA) Social History SMOKING STATUS: Never smoker SUBSTANCE USE: does not use ALCOHOL: Never ED Exam Narrative Physical exam: Constitutional: Awake, alert, nontoxic, no acute distress HEENT: Normocephalic, atraumatic, extraocular movements intact. Neck: Supple CV: Bradycardic, regular rhythm, no murmurs/rubs/gallops. Chest Wall: Tenderness over left anterior-lateral lower chest, no crepitus or deformity. Lungs: Clear to auscultation BL, no respiratory distress. Abd: Soft, NT, ND, no HSM noted to palpation Extremities: No deformities, no edema noted Neuro: AAOx3, CN 2-12 GIBL, no acute neuro deficit noted. Skin: Warm, dry, intact Course Quality Measures none Orders Category Date Time Status Appliance Counselor Q4H START 00 Care 04/13/25 10:12 Completed EKG (ED ONLY) *Do not use* NOW Care 04/13/25 09:38 Completed Insert IV NOW Care 04/13/25 10:[address] head/brain wo con Stat Exams 04/13/25 13:21 Completed EKG (ED Only) Stat Exams 04/13/25 09:38 Draft XR chest 1V portable Stat Exams 04/13/25 10:32 Completed CBC Stat Lab 04/13/25 10:36 Completed CMP [Comprehensive Metabolic Panel] Stat Lab 04/13/25 10:36 Completed Lipase Stat Lab 04/13/25 10:36 Completed Magnesium Stat Lab 04/13/25 10:36 Completed TSH [Thyroid Stimulating Hormone] Stat Lab 04/13/25 10:36 Completed Troponin I Stat Lab 04/13/25 10:36 Completed Acetaminophen Ivpb [Ofirmev Inj] Med 04/13/25 11:46 Discontinued 1,000 mg in 100 ml IV NOW Ketorolac Inj [Toradol Inj] Med 04/13/25 10:31 Discontinued 30 mg IVP X1 ONE Meclizine HCl [Antivert] Med 04/13/25 11:46 Discontinued 25 mg PO X1 ONE Vital Signs Vital signs: Vital Signs Temperature 98.7 F 04/13/25 09:47 Pulse Rate 46 L 04/13/25 09:47 Respiratory Rate 16 04/13/25 09:47 Blood Pressure 143/85 H 04/13/25 09:47 Pulse Oximetry (%) 100 04/13/25 09:47 Oxygen Delivery Method Room Air 04/13/25 09:47 Chest Pain MDM Narrative MDM Narrative:: I, Heather Moffett, am scribing for and in the presence of Dr. Butcher. 1320h: Checked on pt. HR fluctuates high 30s at times, mainly in low 40s. Mother notes that he also has ESPARZA and dizziness on and off x months. Concerned about the brain tumor he was previously diagnosed with. Will add CT brain. W/u is otherwise unremarkable at this time. BP stable. 1515h: Discussed test HPI, PMHx, lab, radiology results and/or management with product development Dr. Arevalo. Recommends the patient to follow-up as an outpatient w cards. CT of the brain was normal. Vitally stable. Okay for discharge home at this time. Patient data External records reviewed:: [facility] previous records Clinical information provided by:: patient and parent (mother) Social determinants that could affect healthcare access:: none Patient has the following chronic illnesses:: Medical history notable for meningioma with associated seizures and bradycardia followed by product development Dr. Arevalo and neurologist Dr. Serna. How is presenting disease/condition affected by chronic disease/condition?: exacerbated by Evaluation data The following diagnostics were reviewed and interpreted by me:: lab results, radiology exam(s) and EKG tracing(s) (My interpretation: EKG performed at 0944 hours, sinus bradycardia, rate 49, no STEMI) Lab and/or radiology exams considered but not ordered:: none Interpretation Summary: See MDM narrative above. RADIOLOGY Procedure(s): XR chest 1V portable Accession Number(s): [id number] cc: Cezar Antoine MD; Alexsandra Butcher MD; Yadiel Aguilar MD~ EXAMINATION: AP chest single view TECHNIQUE: AP portable upright chest single view Date and time: April 13, 2025, 10:31 a.m., comparison 03/29/2025 INDICATIONS: Onset chest pain dizziness today. FINDINGS: Normal heart size The lungs are clear. The osseous structures are intact IMPRESSION: No active disease Dictated By: Cezar Antoine MD Procedure(s): CT head/brain wo con Accession Number(s): [id number] cc: Cezar Antoine MD; Alexsandra Butcher MD; Yadiel Aguilar MD~ Examination: CT brain head without contrast. 2-D sagittal coronal reconstructions Date and time of exam: April 13, 2025, 1409 hours INDICATIONS: Headache dizziness beginning 2 days ago COMPARISON: June 24, 2016 CTDI: vol (mGy): 50.5 DLP: (mGycm): 1016 Technique: Multiple CT axial sections of the brain have been obtained, 5 mm slice thickness. Contrast has not been administered. 2-D sagittal, coronal reconstructions have been obtained Low dose protocols were performed. One or more of the following dose reduction techniques were used; automated exposure control, adjustment of the mA and/or KV according to patient size, use of iterative reconstruction technique. Findings: No significant ventricular enlargement. Intra-axial or extra-axial hemorrhage density is not seen. No mass effect or midline shift Basal cisterns are not remarkable. Fourth ventricle is midline. Cranial vault intact. Impression: Negative for acute hemorrhage, mass effect or midline shift Advise clinical correlation and follow-up accordingly Dictated By: Cezar Antoine MD Medications / Prescriptions Medications or Prescriptions considered but not ordered:: none Medication administrations:: Medication Administration History Discontinued Medications Acetaminophen (Ofirmev Inj) 1,000 mg in 100 mls @ 250 mls/hr IV NOW ONE Stop: 04/13/25 12:09 Last Infusion: 04/13/25 13:43 Dose: Infused Documented By: Admin: 04/13/25 13:09 Dose: 250 mls/hr Documented By: Admin: 04/13/25 13:03 Dose: Not Given Documented By: LINDA Non-Admin Reason: Called Pharm- pend delivery Ketorolac Tromethamine (Ketorolac Inj 30 Mg/Ml Vial) 30 mg IVP X1 ONE Stop: 04/13/25 10:32 Last Admin: 04/13/25 10:44 Dose: 30 mg Documented By: DB Meclizine HCl (Meclizine Hcl 25 Mg Tablet) 25 mg PO X1 ONE Stop: 04/13/25 11:47 Last Admin: 04/13/25 12:48 Dose: 25 mg Documented By: DB see above Consultations Consultation(s) initiated? (list below): No Diagnosis Chest Pain Differential Diagnosis: other (Musculoskeletal chest pain, bradyarrhythmia-related symptoms, pericarditis, anxiety, atypical chest pain.) Most likely diagnosis given after review of the tests above:: Chest pain Sinus bradycardia Admission Indicated Admission indicated?: not indicated Admission Request Was there a request for admission?: No Disposition Plan Disposition Plan: Discharge Discharge Attestation Discharge Attestation: The patient and all family members were given an opportunity to ask questions and understood the discharge instructions. Discharge instructions specifically effects, indications for sooner follow up or return to the emergency department, and the expected course of current diagnosis. Patient condition: Stable Discharge Plan Plan Patient Disposition: HOME (Self Care) Patient condition on transfer: Stable Prescriptions/Referrals Prescriptions/Med Rec: New Farrell Walpole 230-70 mg adhesive patch,medicated 1 patch topical QDAY PRN (Reason: pain) Qty: 4 0RF No Action ondansetron 4 mg tablet,disintegrating 4 mg PO Q8H Qty: 14 0RF famotidine 20 mg tablet 20 mg PO QDAY Qty: 30 0RF Referrals: Yadiel Aguilar MD [Primary Care Provider, Family Practice] - In 1 week Problem List Clinical Impression: Chest pain, Bradycardia, sinus Patient/Caregiver Discharge Instructions Education Materials: ED Chest Pain, Noncardiac, ED Bradycardia Additional Instructions: Some general health principles that can help in general are the [employer] START principles: Nutrition (eat a plant-based diet, avoiding meats in general, avoiding highly pr ocessed foods) Exercise (Daily exercise/walks as tolerated) Water (Drink adequate fresh water to maintain hydration, concentrating on water rather than on soda, coffee, tea, juice, etc for hydration) [place] (Spend time - 15-20 minutes or so with skin exposed in the kiln tender and late evening sun for Vitamin D health benefits) [place] (Avoid alcohol, illicit drugs, caffeinated beverages, smoking, etc) Air (Deep breathing exercises in the early mornings in fresh air) Rest (Adequate rest at night, going to bed a few hours before midnight and avoiding all screens/television/loud music in the time right before going to bed, also avoiding heavy meals just prior to going to bed) Trust in God (Spend time daily in Bible study and prayer - health benefits in contemplation of God's true character) Additional resources that can benefit: [email or web address], look under resources and seminars. Another good website is www.[employer].org Print Language: Slovak Stand Alone Forms: Yandy Award Info., Patient Portal Info Letter
[2025-04-13] MEDS: KETOROLAC INJ 30 MG/ML VIAL IVP (10:44)
[2025-04-13 10:50] LABS: Basophils # (Auto) 0.0 Thou/mm3 (0.0-0.2); Basophils % (Auto) 1 % (0-2.5); Eosinophils # (Auto) 0.2 Thou/mm3 (0.0-0.5); Eosinophils % (Auto) 4 % (0-10); Hematocrit 39.8 % (41.0-53.0); Hemoglobin 14.1 g/dL (13.5-16.0); Immature Granulocytes Auto 0.01 Thou/mm3 (0.00-0.00); Lymphocytes # (Auto) 1.1 Thou/mm3 (1.0-4.8); Lymphocytes % (Auto) 27 % (10-50); Mean Corpuscular HGB Conc 35.4 g/dl (31.0-37.0); Mean Corpuscular Hemoglobin 29.5 pg (25.0-35.0); Mean Corpuscular Volume 83 fL (80-100); Monocytes # (Auto) 0.4 Thou/mm3 (0.0-0.8); Monocytes % (Auto) 10 % (0-12); Neutrophils # (Auto) 2.3 Thou/mm3 (1.8-7.7); Neutrophils % (Auto) 58 % (37-80); Nucleated Red Blood Cell # 0.00 Thou/mm3 (0.00-0.00); Nucleated Red Blood Cell % 0 /100 WBC (0); Platelet Count 122 Thou/mm3 (140-440); RDW Standard Deviation 39.3 fL (35.1-43.9); Red Blood Count 4.78 Miln/mm3 (4.50-5.90); White Blood Count 3.9 Thou/mm3 (3.8-10.6)
[2025-04-13 11:08] LABS: Alanine Aminotransferase 22 U/L (10-49); Albumin, Serum 4.3 gm/dL (3.5-5.0); Albumin/Globulin Ratio 1.7 (1.2-2.2); Alkaline Phosphatase 62 U/L (46-116); Anion Gap 9 (7-16); Aspartate Amino Transferase 36 U/L (0-34); BUN/Creatinine Ratio 11 Ratio (12-20); Bilirubin,Total 1.8 mg/dL (0.3-1.2); Blood Urea Nitrogen 11 mg/dL (9-23); Calcium 9.1 mg/dL (8.3-10.6); Calcium (Corrected) 9.1 mg/dL (8.5-10.1); Carbon Dioxide 28.3 mMol/L (20.0-31.0); Chloride 104 mMol/L (98-107); Creatinine (Component) 1.0 mg/dL (0.6-1.3); Estimated Creatinine Clearance 139.7 mL/min (>60); Globulin 2.6 gm/dL (2.3-3.5); Glucose 92 mg/dL (74-106); Lipase 27 U/L (12-53); Magnesium 2.2 mg/dL (1.6-2.6); Osmolality,Calculated 280 (275-295); Potassium 4.2 mMol/L (3.4-5.1); Sodium 141 mMol/L (136-145); Thyroid Stimulating Hormone 1.43 uIU/mL (0.55-4.78); Total Protein 6.9 gm/dL (5.7-8.2); Troponin I < 0.020 ng/mL (0.0-0.045); eGFR > 60 See Note
[2025-04-13] MEDS: MECLIZINE HCL 25 MG TABLET PO (12:48)
[2025-04-13] MEDS: ACETAMINOPHEN IVPB 1,000 MG/100 ML VIAL 250 MG IV (13:09)
--- NOTE | 2025-04-13 13:21 | XR_ITS ---
Examination: CT brain head without contrast. 2-D sagittal coronal reconstructions Date and time of exam: April 13, 2025, 1409 hours INDICATIONS: Headache dizziness beginning 2 days ago COMPARISON: June 24, 2016 CTDI: vol (mGy): 50.5 DLP: (mGycm): 1016 Technique: Multiple CT axial sections of the brain have been obtained, 5 mm slice thickness. Contrast has not been administered. 2-D sagittal, coronal reconstructions have been obtained Low dose protocols were performed. One or more of the following dose reduction techniques were used; automated exposure control, adjustment of the mA and/or KV according to patient size, use of iterative reconstruction technique. Findings: No significant ventricular enlargement. Intra-axial or extra-axial hemorrhage density is not seen. No mass effect or midline shift Basal cisterns are not remarkable. Fourth ventricle is midline. Cranial vault intact. Impression: Negative for acute hemorrhage, mass effect or midline shift Advise clinical correlation and follow-up accordingly
== END 2025-04-13 16:07 | disposition home or self-care (01) ==
PROVIDERS: Physician Assistant; Emergency Provider Family Medicine; PCP Family Medicine
DX: R00.1 Bradycardia, unspecified (principal)
CPT/HCPCS: 36415; 70450; 71045; 80053; 83690; 83735; 83880; 84443; 84484; 85025; 85610; 93005; 96365; 96375; 99283; J0131; J1885; A9270

== ENCOUNTER → 2025-05-22 | Outpatient (CLI) | payer BC, SELFPAY ==
[2025-05-22 14:08] LABS: Basophils # (Auto) 0.0 Thou/mm3 (0.0-0.2); Basophils % (Auto) 1 % (0-2.5); Eosinophils # (Auto) 0.3 Thou/mm3 (0.0-0.5); Eosinophils % (Auto) 5 % (0-10); Hematocrit 42.2 % (41.0-53.0); Hemoglobin 14.8 g/dL (13.5-16.0); Immature Granulocytes Auto 0.01 Thou/mm3 (0.00-0.00); Lymphocytes # (Auto) 1.4 Thou/mm3 (1.0-4.8); Lymphocytes % (Auto) 25 % (10-50); Mean Corpuscular HGB Conc 35.1 g/dl (31.0-37.0); Mean Corpuscular Hemoglobin 29.7 pg (25.0-35.0); Mean Corpuscular Volume 85 fL (80-100); Monocytes # (Auto) 0.5 Thou/mm3 (0.0-0.8); Monocytes % (Auto) 9 % (0-12); Neutrophils # (Auto) 3.3 Thou/mm3 (1.8-7.7); Neutrophils % (Auto) 61 % (37-80); Nucleated Red Blood Cell # 0.00 Thou/mm3 (0.00-0.00); Nucleated Red Blood Cell % 0 /100 WBC (0); Platelet Count 165 Thou/mm3 (140-440); RDW Standard Deviation 40.4 fL (35.1-43.9); Red Blood Count 4.99 Miln/mm3 (4.50-5.90); White Blood Count 5.5 Thou/mm3 (3.8-10.6)
[2025-05-22 14:15] LABS: INR 1.1 (0.9-1.3); Partial Thromboplastin Time 27.6 Seconds (22.0-36.0); Prothrombin Time 11.4 Seconds (9.0-12.2)
[2025-05-22 14:20] LABS: Albumin, Serum 4.8 gm/dL (3.5-5.0); Anion Gap 7 (7-16); BUN/Creatinine Ratio 14 Ratio (12-20); Blood Urea Nitrogen 14 mg/dL (9-23); Calcium 9.4 mg/dL (8.3-10.6); Calcium (Corrected) 9.4 mg/dL (8.5-10.1); Carbon Dioxide 32.1 mMol/L (20.0-31.0); Chloride 104 mMol/L (98-107); Creatinine (Component) 1.0 mg/dL (0.6-1.3); Glucose 90 mg/dL (74-106); Osmolality,Calculated 285 (275-295); Phosphorous 4.4 mg/dL (2.4-5.1); Potassium 4.3 mMol/L (3.4-5.1); Sodium 143 mMol/L (136-145); eGFR > 60 See Note
== END | disposition home or self-care (01) ==
LOC: COPL 13:11
PROVIDERS: PCP Family Medicine; Referring Provider Specialist; Visit Provider Specialist
DX: Z79.02 Long term (current) use of antithrombotics/antiplatelets (principal)
CPT/HCPCS: 36415; 80069; 85025; 85610; 85730